=== PATIENT | male | born 1955 | race Caucasian/White ===

== ENCOUNTER 2016-11-10 14:20 | Emergency (ER) | payer BC ==
[2016-11-10] MEDS ORDERED: Sodium Chloride 0.9% 10 ML Syringe FLUSH PRN (14:26)
[2016-11-10] MEDS ORDERED: Heparin Sodium 5,000 Units/ML Vial IVPUSH ONE (14:33)
[2016-11-10] MEDS ORDERED: Heparin Sodium/D5W 25,000 UNITS/500 ML BAG IV SCH (14:45)
--- NOTE | 2016-11-10 14:48 | EDM.PDOC ---
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 He he was seen by Dr. Ricks today. 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 Short segment of infarcted bowel cannot be excluded. Patient had labs done at [facility] which showed an elevated white blood cell count of 23,000. Hemoglobin is 15.5, hematocrit is 43.9. Platelets are 146. CMP showed a blood sugar 114. Creatinine was 1.1. Sodium 131, potassium 4.8 chloride is 11. Anion gap 13. Total bilirubin is elevated 2.5. Patient also has a urinalysis obtained. Care was correlated with [facility] in [place]. Dr. Barron accepted the patient. Dr. Hamilton asked that we obtain a lactic acid and start a heparin drip. unfortunately he does not have privileges here in the ER thus I was asked to see him. No PT or PTT was drawn at [facility]. The patient reports he has been abdominal pain for the last 4 days. States is located in his abdomen and extends into his back. He reports associated symptoms of constipation. He was given 10 mg of morphine prior to arrival in the ER. Location: generalized - Related Data Allergies/ADRs: Allergies Allergy/AdvReac Type Severity Reaction Status Date / Time demeclocycline Allergy Rash Verified 11/10/16 14:33 [From Declomycin] Penicillins Allergy Rash Verified 11/10/16 14:33 ED ROS GENERAL - Review of Systems Review Of Systems: See Below GI/Abdominal: Reports: Abdominal pain, Constipation. Denies: Diarrhea ED EXAM, GI/ABD - Physical Exam Exam: See Below Exam Limited By: No limitations General Appearance: alert, WD/WN, no apparent distress Respiratory/Chest: no respiratory distress, lungs clear, normal breath sounds Cardiovascular: normal peripheral pulses, regular rate, rhythm, no murmur GI/Abdominal: normal bowel sounds, soft, tenderness (diffuse) Neurological: alert, oriented, normal cognition Psychiatric: normal affect, normal mood Skin Exam: Warm, Dry, Normal color Course - Vital Signs Last Recorded V/S: Last Vital Signs Temp 36.7 C 11/10/16 14:33 Pulse 88 11/10/16 14:33 Resp BP 126/90 11/10/16 14:33 Pulse Ox 99 11/10/16 14:33 - Orders/Labs/Meds Orders: Active Orders 24 hr Category Date Time Status Peripheral IV Care [RC] . DIRECTED Care 11/10/16 14:26 Ordered INR,PT,PROTHROMBIN TIME [COAG] Stat Lab 11/10/16 14:34 Ordered LACTIC ACID [CHEM] Stat Lab 11/10/16 14:26 Ordered PTT,PARTIAL THROMBOPLSTIN TIME [COAG] Stat Lab 11/10/16 14:34 Ordered Heparin Sodium/D5W [Heparin 25,000 Units in D5W 500 ML] Med 11/10/16 14:45 Active 25,000 units in 500 ml IV TITRATE Sodium Chloride 0.9% [Saline Flush] Med 11/10/16 14:26 Active 10 ml FLUSH ASDIRECTED PRN Peripheral IV Insertion Adult [OM.PC] Routine Oth 11/10/16 14:26 Ordered Medication Orders Heparin Sodium/Dextrose (Heparin 25,000 Units In D5w 500 Ml) 25,000 units in 500 mls @ 26.64 mls/hr IV TITRATE ERNESTO; 12 UNITS/KG/HR PRN Reason: Protocol Last Admin: 11/10/16 14:53 Dose: 26.64 mls/hr Sodium Chloride (Saline Flush) 10 ml FLUSH ASDIRECTED PRN PRN Reason: Keep Vein Open Meds: Medications Generic Name Dose Route Start Last Admin Trade Name Freq PRN Reason Stop Dose Admin Heparin Sodium/Dextrose 25,000 units in 500 mls @ 26.64 mls/hr 11/10/16 14:45 11/10/16 14:53 Heparin 25,000 Units In D5w 500 Ml IV 26.64 mls/hr TITRATE ERNESTO Administration Protocol 12 UNITS/KG/HR Sodium Chloride 10 ml 11/10/16 14:26 Saline Flush FLUSH ASDIRECTED PRN Keep Vein Open Discontinued Medications Generic Name Dose Route Start Last Admin Trade Name Freq PRN Reason Stop Dose Admin Heparin Sodium (Porcine) 5,000 units 11/10/16 14:33 11/10/16 14:47 Heparin Sodium IVPUSH 11/10/16 14:34 5,000 units ONETIME ONE Administration - Re-Assessments/Exams Free Text/Narrative Re-Assessment/Exam: 11/10/16 14:56 Called [facility] in [place] and spoke with Dr. Hamilton. Would like a lactic acid and a heparin bolus followed by a drip. Discussed with Dr. Kothari. Will give a 5000 unit bolus followed by a drip at 18units/hr. This is the [facility] protocol. Plan to send patient to [place] and fax lab results. Labs pending lactic acid, Pt and PTT. Departure - Departure Time of Disposition: 15:01 Disposition: DC/Tfer to Acute Hospital 02 Condition: serious Clinical Impression: Mesenteric vein thrombosis Forms: ED Department Discharge Additional Instructions: Patient will go by air to [facility] in [place]. Dr Hamilton accepting. - My Orders Last 24 Hours: My Active Orders 11/10/16 14:26 Peripheral IV Care [RC] . DIRECTED LACTIC ACID [CHEM] Stat Sodium Chloride 0.9% [Saline Flush] 10 ml FLUSH ASDIRECTED PRN Peripheral IV Insertion Adult [OM.PC] Routine 11/10/16 14:34 INR,PT,PROTHROMBIN TIME [COAG] Stat PTT,PARTIAL THROMBOPLSTIN TIME [COAG] Stat 11/10/16 14:45 Heparin Sodium/D5W [Heparin 25,000 Units in D5W 500 ML] 25,000 units in 500 ml IV TITRATE - Assessment/Plan Last 24 Hours: My Active Orders 11/10/16 14:26 Peripheral IV Care [RC] . DIRECTED LACTIC ACID [CHEM] Stat Sodium Chloride 0.9% [Saline Flush] 10 ml FLUSH ASDIRECTED PRN Peripheral IV Insertion Adult [OM.PC] Routine 11/10/16 14:34 INR,PT,PROTHROMBIN TIME [COAG] Stat PTT,PARTIAL THROMBOPLSTIN TIME [COAG] Stat 11/10/16 14:45 Heparin Sodium/D5W [Heparin 25,000 Units in D5W 500 ML] 25,000 units in 500 ml IV TITRATE
[2016-11-10 20:44] VITALS: BP 118/72
== END 2016-11-10 15:07 ==
LOC: JD.ED 14:20
DX: I81 Portal vein thrombosis (principal); Z88.0 Allergy status to penicillin; Z88.8 Allergy status to other drugs, medicaments and biological substances
CPT/HCPCS: 36415; 83605; 85610; 85730; 96374; 99285; J1644; 99284